=== PATIENT | male | born 1985 | race Two or more races ===

== ENCOUNTER 2020-02-15 07:00 | Day surgery (SDC) | payer OTHER ==
[~2020-02-15] VITALS: Ht 170.2 cm; Wt 77.1 kg
[2020-02-15] MEDS ORDERED: ULTRAM50 MG PO (12:35)
[2020-02-15] MEDS ORDERED: TAMS0.4C PO (12:37)
== END 2020-02-15 13:00 | disposition home or self-care (01) ==
LOC: CIR.AMB 07:00 → ER 07:56 → SEC-K 07:56 → EDSTATUS 10:00 → SEC-K 11:23 → O/R 11:23 → CIR.AMB 13:00 → O/R 21:00 → SEC-K 21:00
PROVIDERS: ATTEND General Practice
DX: N20.1 Calculus of ureter (principal); N20.0 Calculus of kidney

== ENCOUNTER 2021-10-31 22:02 | Emergency (ER) | payer OTHER ==
[~2021-10-31] VITALS: Ht 170.2 cm; Wt 73.5 kg
[~2021-10-31 22:02] MED LIST: TAMS0.4C PO; ULTRAM50 MG PO
[2021-11-01] MEDS ORDERED: KETO10TA2 PO (04:16)
== END 2021-11-01 04:29 ==
LOC: ER 22:02
DX: I88.0 Nonspecific mesenteric lymphadenitis (principal); N20.0 Calculus of kidney; Z87.442 Personal history of urinary calculi

== ENCOUNTER 2022-01-04 10:24 | Emergency (ER) | payer OTHER ==
[~2022-01-04] VITALS: Ht 170.2 cm; Wt 71.7 kg
[~2022-01-04 10:24] MED LIST changes: +KETO10TA2 PO
== END 2022-01-04 16:13 | disposition home or self-care (01) ==
LOC: ER 10:24
DX: R10.31 Right lower quadrant pain (principal); N20.0 Calculus of kidney; I88.9 Nonspecific lymphadenitis, unspecified; Z20.822 Contact with and (suspected) exposure to COVID-19